=== PATIENT | male | born 1945 | race Caucasian/White ===

== ENCOUNTER → 2021-05-24 | Outpatient (CLI) | payer MEDICARE ==
[~2021-05-24] MED LIST: ALLOPURINOL 10100 M1 PO; BLOOD PRESSURE MED; CIALIS5 MG PO; LIPITOR; LIPITOR20 MG PO; NORCO 7.5-3251 EACH PO; PANTOPRAZOLE SO40 M1 PO; PRINIVIL5 MG PO; RESTORIL15 MG PO; SILVADENE20 GM TP; ZOLOFT 50 MG TA50 MG PO
== END ==
LOC: M.LAB 12:11
PROVIDERS: ATTEND Orthopaedic Surgery
DX: Z01.812 Encounter for preprocedural laboratory examination (principal); Z20.822 Contact with and (suspected) exposure to COVID-19